=== PATIENT | female | born 1995 | race African-American/Black ===

== ENCOUNTER 2020-04-14 07:56 | Emergency (ER) | payer OTHER ==
[~2020-04-14] VITALS: Ht 165.1 cm; Wt 59.1 kg
[2020-04-14] MEDS ORDERED: METR500 PO (08:05)
[2020-04-14] MEDS ORDERED: CefTRIAXone SODIUM 1 GM/VIAL IM ONE (11:45)
[2020-04-14] MEDS ORDERED: FLUCONAZOLE 200 MG TABLET PO ONE (11:45)
[2020-04-14] MEDS ORDERED: AZITHROMYCIN 500 MG TABLET PO ONE (11:45)
[2020-04-14 12:31] VITALS: BP 115/79
== END 2020-04-14 12:36 | disposition home or self-care (01) ==
LOC: EMS 07:58
DX: N89.8 Other specified noninflammatory disorders of vagina (principal); J45.909 Unspecified asthma, uncomplicated; F12.90 Cannabis use, unspecified, uncomplicated
CPT/HCPCS: 84703; 87210; 87491; 87591; 96372; 99285; J0696